=== PATIENT | female | born 1955 | race Hispanic/Latino ===

== ENCOUNTER 2021-12-02 07:56 | Day surgery (SDC) | payer MEDICARE ==
[~2021-12-02 07:56] MED LIST: SODIUM CHLORIDE 0.9% 1000 ML 1,000 ML IV SCH
--- NOTE | 2021-12-02 08:31 | Anesthesia Day of Surgery ---
Anesthesia Day of Surgery - Day of Surgery Patient Examined: Yes Patient H&P Reviewed: Yes Patient is NPO: Yes
--- NOTE | 2021-12-02 08:34 | Anesthesia Consultation ---
Anesthesia Consult and Med Hx Date of service: 12/02/21 - Airway Anesthetic Teeth Evaluation: Good ROM Head & Neck: Adequate Mental/Hyoid Distance: Adequate Mallampati Class: Class II Intubation Access Assessment: Good - Pulmonary Exam CTA: Yes - Cardiac Exam Cardiac Exam: RRR - Pre-Operative Health Status ASA Pre-Surgery Classification: ASA2 Proposed Anesthetic Plan: MAC - Pulmonary Hx Smoking: Yes (quit 6yrs ago) - Central Nervous System Hx Neuromuscular Disorder: Yes (Essential Tremors, OA) - Endocrine Hx Non-Insulin Dependent Diabetes: Yes (Pre Diabetes) Hx Hypothyroidism: Yes
[2021-12-02] MEDS ORDERED: propofoL 200 MG/20 ML VIAL IV ONE ×2 (08:43→09:14)
--- NOTE | 2021-12-02 09:34 | Procedure Note ---
Date of procedure: 12/02/21 Pre-op diagnosis: Colon Polyp Screening/ F/H/O Cancer ( mother) Post-op diagnosis: other (No colon Polyps/ No Diverticular Disease/ No Internal Hemorrhoids) Anesthesia: MAC Surgeon: LUPE SCHMIDT Estimated blood loss: none Pathology: none Condition: stable Disposition: same day (Resume previous medication and F/U in 1 to 2 weeks ).)
[2021-12-02] MEDS ORDERED: LIDOCAINE MPF (2%) 20 MG/1 ML VIAL 5 ML ONE (09:46)
--- NOTE | 2021-12-02 10:21 | Post Anesthesia Evaluation ---
- Post Anesthesia Evaluation Patient Participated: Yes Airway Patent: Yes Stable Respiratory Function: Yes Nausea/Vomiting: No Temp > 96.8F: Yes Pain Manageable: Yes Adequeate Hydration: Yes Anesthesia Complications: No
[2021-12-02 10:25] VITALS: BP 120/73
--- NOTE | 2021-12-02 20:22 | Operative Report ---
DATE OF SURGERY: 12/02/2021 PROCEDURE: Colonoscopy. INDICATIONS: The patient is a 66-year-old white female with a family history of cancer. Colonoscopy was done as part of colon polyp screening. DESCRIPTION OF PROCEDURE: Procedure was done after getting informed consent with MAC anesthesia. Initial rectal examination was unremarkable. The instrument was passed through the rectum onto the cecum, which was identified by the ileocecal valve and appendiceal orifice. Visualization was fair in the proximal colon and good in the transverse and the distal colon. There was no evidence of any polyps noted throughout the entirety of the colon. No diverticular disease noted. No internal hemorrhoids. ASSESSMENT: Colon polyp screening, family history of cancer. Mother had lung cancer. No colon polyps noted. No diverticular disease noted. No internal hemorrhoids noted. PLAN: To resume previous medication and follow up in the office in 1-2 weeks' time. TID: [id number] RECEIPT: [id number] LEODAN/AARON/VIRI cc: ____
== END 2021-12-02 11:20 | disposition home or self-care (01) ==
LOC: GIO 07:56
DX: Z12.11 Encounter for screening for malignant neoplasm of colon (principal); E11.9 Type 2 diabetes mellitus without complications; E03.9 Hypothyroidism, unspecified; Z87.891 Personal history of nicotine dependence; Z80.0 Family history of malignant neoplasm of digestive organs; Z88.0 Allergy status to penicillin; Z80.1 Family history of malignant neoplasm of trachea, bronchus and lung; Z79.899 Other long term (current) drug therapy; Z98.890 Other specified postprocedural states
CPT/HCPCS: 45378; 82962; J2704; J7030